=== PATIENT | male | born 2000 | race Caucasian/White ===

== ENCOUNTER 2023-03-17 10:15 | Outpatient (OUT) | payer OTHER, SELFPAY ==
[2023-03-17 11:02] LABS: Basophils Percent Auto 0.7 % (0.2-2.0); Eosinophils Absolute Auto 0.3 10^3/uL (0.0-0.7); Eosinophils Percent Auto 7.7 % (0.9-7.0); Hematocrit 41.8 % (42.0-54.0); Hemoglobin 14.5 g/dL (14.0-18.0); Immature Granulocytes Abs Auto 0.01 10^3/uL (0.00-0.03); Immature Granulocytes Pct Auto 0.2 % (0.0-0.5); Lymphocytes Absolute Auto 1.3 10^3/uL (1.2-3.8); Lymphocytes Percent Auto 30.3 % (20.5-60.0); Mean Corpuscular HGB Conc 34.7 g/dL (29.9-35.2); Mean Corpuscular Hemoglobin 31.8 pg (25.9-34.0); Mean Corpuscular Volume 91.7 fL (80.0-94.0); Mean Platelet Volume 10.6 fL (9.5-13.5); Monocytes Absolute Auto 0.4 10^3/uL (0.3-0.8); Monocytes Percent Auto 8.7 % (1.7-12.0); Neutrophils Absolute Auto 2.2 10^3/uL (1.4-6.5); Neutrophils Percent Auto 52.4 % (43.0-75.0); Platelet Count 222 10^3/uL (150-450); Red Blood Count 4.56 10^6/uL (4.70-6.10); Red Cell Distribution Width 11.6 % (11.0-15.0); White Blood Count 4.2 10^3/uL (4.0-11.0)
--- NOTE | 2023-03-17 11:03 | XR_ITS ---
The [address] [address] Patient Name: SOHAIL OWUSU MRN: [id number] date: 2000 Sex: M Assigned Patient Location: LAB Current Patient Location: LAB Accession/Order Number: [id number] Exam Date: 03/17/2023 10:55 Report Date: 03/17/2023 11:38 At the request of: BHAKTI JOYCE Procedure: XR lumbar spine 2-3V EXAM: XR lumbar spine 2-3V HISTORY: Low Back Derangement Syndrome M53.86 COMPARISON: None. TECHNIQUE: 3 views FINDINGS: Satisfactory alignment. Apparent cortical irregularity of the superior endplate of L2 vertebral body. Remainder of the vertebral body heights maintained. Maintained disc spaces. Nonobstructive bowel gas pattern. XR/XR lumbar spine 2-3V IMPRESSION: Apparent cortical irregularity of the superior endplate of L2 vertebral body may be secondary to projection versus nondisplaced fracture. Electronically authenticated by: SHITAL WONG Date: 03/17/2023 11:38
[2023-03-17 12:05] LABS: Estimated Average Glucose 94 mg/dL; Glycohemoglobin A1C 4.9 % (4.5-6.2)
[2023-03-17 12:38] LABS: Alanine Aminotransferase 30 U/L (16-63); Albumin Globulin Ratio 1.1; Albumin Level 4.2 g/dL (3.4-5.0); Alkaline Phosphatase 92 U/L (46-116); Anion Gap 12.3; Aspartate Amino Transferase 19 U/L (15-37); Bilirubin Total 0.6 mg/dL (0.2-1.0); Calcium 9.1 mg/dL (8.5-10.1); Carbon Dioxide 29.6 mmol/L (21.0-32.0); Chloride 103 mmol/L (98-107); Chol HDL Ratio 2.7; Cholesterol 167 mg/dL (<=200); Estimated GFR (African America >60 (>=60); Estimated GFR (Non-African Ame >60 (>=60); Free Thyroxine Index 2.34 (1.30-4.50); Globulin 3.7 g/dL; Glucose 85 mg/dL (74-106); HDL Cholesterol 61 mg/dL (40-60); Potassium 3.9 mmol/L (3.5-5.1); Sodium 141 mmol/L (136-145); Total Protein 7.9 g/dL (6.4-8.2); Triglycerides 41 mg/dL (<=150); VLDL CHOLESTEROL 8.2 mg/dL
== END 2023-03-17 10:16 | disposition home or self-care (01) ==
LOC: LAB 10:22
PROVIDERS: PCP Family Medicine; Visit Provider Family Medicine
DX: Z00.00 Encounter for general adult medical examination without abnormal findings (principal); E78.5 Hyperlipidemia, unspecified; R73.09 Other abnormal glucose; M53.86 Other specified dorsopathies, lumbar region
CPT/HCPCS: 36415; 72100; 80053; 80061; 83036; 84436; 84443; 84479; 85025

== ENCOUNTER 2023-04-04 09:38 | Outpatient (OUT) | payer OTHER, SELFPAY ==
--- NOTE | 2023-04-04 09:42 | XR_ITS ---
The [place] [id number] Patient Name: SOHAIL OWUSU MRN: [id number] date: 2000 Sex: M Assigned Patient Location: [facility] Current Patient Location: [facility] Accession/Order Number: [id number] Exam Date: 04/04/2023 09:50 Report Date: 04/04/2023 15:32 At the request of: ANSELMO FULLER Procedure: XR hand RT min 3V STUDY: XR hand RT min 3V, [id number] HISTORY: Mass Of Right Hand R22.31 COMPARISON: None FINDINGS/IMPRESSION: No acute fracture, dislocation, or suspicious osseous lesion. No calcified soft tissue mass. BB marker projecting over the palmar aspect of the second/third carpometacarpal joint. No radiopaque correlate for palpable lump demonstrated. Electronically authenticated by: SVEN SRINIVASAN Date: 04/04/2023 15:32
== END 2023-04-04 09:39 | disposition home or self-care (01) ==
LOC: RAD 09:38
PROVIDERS: PCP Family Medicine; Visit Provider Orthopaedic Surgery
DX: R22.31 Localized swelling, mass and lump, right upper limb (principal)
CPT/HCPCS: 73130

== ENCOUNTER 2023-04-15 07:32 | Outpatient (OUT) | payer OTHER, BC, SELFPAY ==
--- NOTE | 2023-04-15 07:48 | MR_ITS ---
The [address] [address] Patient Name: SOHAIL OWUSU MRN: [id number] date: 2000 Sex: M Assigned Patient Location: [facility] Current Patient Location: [facility] Accession/Order Number: [id number] Exam Date: 04/15/2023 08:30 Report Date: 04/15/2023 17:59 At the request of: ANSELMO FULLER Procedure: MR hand RT wo/w con EXAM: MR hand RT wo/w con HISTORY: Right hand pain COMPARISON: Hand x-rays 04/04/2023 TECHNIQUE: Multiplanar, multi sequential MRI sequences were performed with and without the administration of contrast. FINDINGS: 2 large skin markers have been placed along the palmar aspect of the hand which results in inhomogeneous fat saturation on the fluid sensitive fat saturation consists and artifact through the [id number]. Between the skin markers is a 16.5 x 12 x 6.77 mm loculated foci. This appears to exhibit heterogeneous signal on fluid sensitive sequencing, low signal on T1 weighting and heterogeneous postcontrast enhancement. No visualized soft tissue edema or hematoma. No fracture, dislocation, subluxation or osseous lesion. No joint effusion, joint erosion or synovitis. The joint capsules and collateral ligaments are unremarkable. No visualized tendon thickening, tear, edema or tenosynovial collections. No abnormal bursal fluid collections. The visualized muscles exhibit no discrete edema, hematoma, mass or cyst. MR/MR hand RT wo/w con IMPRESSION: 16.5 x 12 x 6.7 mm loculated foci within the proximal aspect of the hand adjacent to the base of the thenar eminence. Unfortunately, the skin markers result in artifact and inhomogeneous fat saturation on the fluid sensitive sequences. It is recommended that the patient return for repeat imaging without the placement of skin markers. An addendum will be made at that time. Electronically authenticated by: JOSE MCDERMOTT Date: 04/15/2023 17:59
--- NOTE | 2023-04-15 07:55 | XR_ITS ---
The [address] [address] Patient Name: SOHAIL OWUSU MRN: [id number] date: 2000 Sex: M Assigned Patient Location: RAD Current Patient Location: RAD Accession/Order Number: [id number] Exam Date: 04/15/2023 07:45 Report Date: 04/15/2023 09:04 At the request of: ANSELMO FULLER Procedure: XR foreign body eye EXAMINATION: XR foreign body eye HISTORY: Foreign Body Eye COMPARISON: No relevant comparison available. FINDINGS: ORBITS: Negative for a metallic foreign body. OTHER: Negative. XR/XR foreign body eye IMPRESSION: 1. No metallic foreign body within the orbits. Electronically authenticated by: ANSELMO OWUSU Date: 04/15/2023 09:04
== END 2023-04-15 07:33 | disposition home or self-care (01) ==
LOC: RAD 07:34
PROVIDERS: PCP Family Medicine; Visit Provider Orthopaedic Surgery
DX: R22.31 Localized swelling, mass and lump, right upper limb (principal)
CPT/HCPCS: 70030; 73220; A9575

== ENCOUNTER 2023-05-06 06:39 | Outpatient (OUT) | payer OTHER, BC, SELFPAY ==
--- NOTE | 2023-05-06 | MR_ITS ---
The [address] [address] Patient Name: SOHAIL OWUSU MRN: [id number] date: 2000 Sex: M Assigned Patient Location: MRI Current Patient Location: MRI Accession/Order Number: [id number] Exam Date: 05/06/2023 06:50 Report Date: 05/06/2023 10:47 At the request of: BHAKTI JOYCE Procedure: MR lumbar spine wo con EXAMINATION: MR lumbar spine wo con HISTORY: M53.86 other specific dorsopathies ; chronic lumbar pain and bilateral lower extremity radiculopathy COMPARISON: No relevant comparison available. TECHNIQUE: A variety of imaging planes and parameters were utilized for visualization of suspected pathology. FINDINGS: For the purposes of numbering, sagittal T2 image # 8 extends from the T12 vertebral body superiorly to the S2 level inferiorly. PARASPINAL AREA: Normal with no visible mass. BONES: No fracture, pars defect, or osseous lesion. CORD/CAUDA EQUINA: Normal caliber, contour, and signal intensity. DISC LEVELS: 12-L1: No significant disc/facet abnormality, spinal stenosis, or foraminal stenosis. L1-L2: Moderate degenerative disc disease is present without central canal or neural foramen stenosis. L2-L3: No significant disc/facet abnormality, spinal stenosis, or foraminal stenosis. L3-L4: No significant disc/facet abnormality, spinal stenosis, or foraminal stenosis. L4-L5: Mild early degenerative disc disease without significant height reduction. Mild diffuse disc bulging with minimal central canal and foramen narrowing. L5-S1: No significant disc/facet abnormality, spinal stenosis, or foraminal stenosis. MR/MR lumbar spine wo con IMPRESSION: 1. No specific findings to account for patient's symptoms. 2. Mild degenerative changes L1-2 and L4-5. Electronically authenticated by: ANSELMO OWUSU Date: 05/06/2023 10:47
== END 2023-05-06 06:40 | disposition home or self-care (01) ==
LOC: MRI 06:40
PROVIDERS: PCP Family Medicine; Visit Provider Family Medicine
DX: M53.86 Other specified dorsopathies, lumbar region (principal); M51.36 Other intervertebral disc degeneration, lumbar region
CPT/HCPCS: 72148

== ENCOUNTER 2023-08-27 09:22 | Outpatient (OUT) | payer OTHER, BC, SELFPAY ==
[2023-08-28 09:11] LABS: HIV Ab/p24 Ag Screen Non Reactive (Non Reactive); Rapid Plasma Reagin, Quant Non Reactive titer (NonRea<1:1)
[2023-08-28 11:10] LABS: HBsAg Screen Negative (Negative); HCV Antibody Non Reactive (Non Reactive); Hep B Core Ab, Tot Negative (Negative)
[2023-08-29 21:08] LABS: Neisseria gonorrhoeae, NAA Negative (Negative)
== END 2023-08-27 09:23 | disposition home or self-care (01) ==
PROVIDERS: PCP Family Medicine
DX: Z11.3 Encounter for screening for infections with a predominantly sexual mode of transmission (principal)
CPT/HCPCS: 36415; 86592; 86704; 86803; 87340; 87389; 87491; 87591

== ENCOUNTER 2024-05-16 17:35 | Emergency (ER) | payer OTHER, SELFPAY ==
[2024-05-16 17:38] VITALS: BP 122/80; PULSE 90; TEMP 36.8; O2SAT 100; BMI 25.1
--- OUTSIDE RECORDS SUMMARY | 2024-05-16 17:43 | XMS_ITS | CCD ---
Author Organization [facility] Inform ion Partnership [facility] ([facility]) [facility] Care Team Providers Care Director [facility] Name Role Phone Vernon Tran Unavailable Unavailable Veronn Tran Unavailable Unavailable Ritchie Morton Primary Care Unavailable Roddy Carpenter Attending Unavailable Roddy Carpenteritting Unavailable ESTRELLITA MILLER Referring Unavailab le GENERIC PROVIDER, NO ASSIGNED PCP Primary Care Unavailable Generic Provider MD, No Assigned Pcp Primary Car e Provider Unavailable ESTRELLITA MILLER Attending Unavailab le THIRESTRELLITA ALVARADO Attending Unavailab le GENERIC PROVIDER, NO ASSIGNED PCP Primary Care Unavailable ESTRELLITA MILLER Attending Unavailab le GENERIC PROVIDER, NO ASSIGNED PCP Primary Care Unavailable KEO MCKEON Attending Unavailable GENERIC PROVIDER, NO ASSIGNED PCP Primary Care Unavailable ESTRELLITA MILLER Referring Unavailab le GENERIC PROVIDER, NO ASSIGNED PCP Primary Care Unavailable ANA LAURA MOJICA Referring Unavailable GENERIC PROVIDER, NO ASSIGNED PCP Primary Care Unavailable ANA LAURA MOJICA Referring Unavailable GENERIC PROVIDER, NO ASSIGNED PCP Primary Care Unavailable Problems Active Problems Problem Classification Problem Date Documented Date Episodic/Chronic Contraceptive and procreative management (10 sources) Encounter for other general counseling and advice on procreation; Translations: [Patient encounter status] Onset: 03-02-2024 Episodic Immunizations and screening for infectious disease (2 sources) Encounter for screening for infections with a predominantly sexual mode of transmission; Translations: [Encounter for screening for infections with a predominantly sexual mode of transmission] Onset: 03-02-2024 Episodic Other diseases of veins and lymphatics (1 source) Varicocele; Translations: [Scrotal varices] Onset: 04-18-2024 04-18-2024 Episodic Other male genital disorders (6 sources) Organic oligospermia; 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] Onset: 03-23-2024 Episodic Other male genital disorders (4 sources) Male infertility, unspecified; Translations: [Male infertility, unspecified] Onset: 03-29-2024 Episodic Other male genital disorders (2 sources) Oligozoospermia; 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 Comment on above: Performed By: #### 1 6128-1 #### JL Sahni ([id number]) [facility] ([facility]) [address] [place] [address] Cells Counted Total (Bld) [#] 30 {cells} [facility] Comment on above: Performed By: #### 1 6128-1 #### JL Sahni ([id number]) [facility] ([facility]) [address] [place] [address] 87992 Chr analysis overall interpretation Molgen Ql (Bld/Tiss) [Interp] SEE COMMENT [facility] Comment on above: Result Comment: Caryn otype 46,XY MALE Interpretation Cytogenetic analysis of 30 metaphase cells from this 03/29/2024 Blood specimen revealed a normal male karyotype (46,XY) at this level of resolution. This individual is chromosomally normal at this level of resolution. Please remember that this analysis does not eliminate the possibility of single gene defects, chromosomal mosaicism involving abnormal cell lines of low frequency, or small chromosomal structural abnormalities. Performed By: #### 1 6128-1 #### JL Sahni ([id number]) [facility] ([facility]) [address] [place] [address] 44958 CHROMOSOME ANALYSIS CELLS ANALYZED 14 cells [facility] Comment on above: Performed By: #### 1 6128-1 #### JL Sahni ([id number]) [facility] ([facility]) [address] [place] [address] 57015 CHROMOSOME ANALYSIS CELLS IMAGED 5 cells [facility] Comment on above: Performed By: #### 1 6128-1 #### JL Sahni ([id number]) [facility] ([facility]) [address] [place] [address] 22115 CHROMOSOME ANALYSIS HYPERMODAL CELL COUNT 0 cells [facility] Comment on above: Performed By: #### 1 6128-1 #### JL Sahni ([id number]) [facility] ([facility]) [address] [place] [address] 43948 CHROMOSOME ANALYSIS HYPOMODAL CELL COUNT 0 cells [facility] Comment on above: Performed By: #### 1 6128-1 #### JL Sahni ([id number]) [facility] ([facility]) [address] [place] [address] CHROMOSOME ANALYSIS MODAL CHROMOSOME NO 46 chromosomes [facility] Comment on above: Performed By: #### 1 6128-1 #### JL Sahni ([id number]) [facility] ([facility]) [address] [place] [address] 81688 CHROMOSOME ANALYSIS STAINING METHOD GTG [facility] Comment on above: Performed By: #### 1 6128-1 #### JL Sahni ([id number]) [facility] ([facility]) [address] [place] [address] 27242 ELECTRONICALLY SIGNED BY CYTOGENETICS Sandra Jones MD, PhD, [facility] Comment on above: Performed By: #### 1 6128-1 #### JL Sahni ([id number]) [facility] ([facility]) [address] [place] [address] 29331 Karyotype Nom (Bld/Tiss) 3 cells [facility] Comment on above: Performed By: #### 1 6128-1 #### JL Sahni ([id number]) [facility] ([facility]) [address] [place] [address] 07365 Estradiolon 03-29-2024 E2 [Mass/Vol] 37 pg/mL Normal [facility] Comment on above: Order Comment: REF V ALUES FOLLICULAR PHASE 20-144 MID CYCLE 64-357 LUTEAL PHASE 56-214 POSTMENOPAUSE < 32 PREPUBERTY < 20 FEMALE 10-18Y 8-110 MALE 10-18Y < 20 ADULT MALE < 40 Performed By: #### 2 243-4 #### JL Sahni ([id number]) [facility] ([facility]) [address] [place] [address] 48907 Follitropin and Lutropin granados el Qnon 03-29-2024 Follitropin Qn 6.7 IU/L Normal [facility] Comment on above: Result Comment: FSH Ref Values Follicular 2.0-12.0 IU/L Mid-Cycle 12.0-25.0 IU/L Luteal Phase 2.0-12.0 IU/L Menopause 30.0-150.0 IU/L Pre-puberty 50% Adult IU/L Adult Male 2.0-10.0 IU/L Infants 0.0-1.0 IU/L Performed By: #### 3 4549-6 #### JL Sahni ([id number]) [facility] ([facility]) [address] [place] [address] 66749 Lutropin Qn 3.6 IU/L Normal [facility] Comment on above: Result Comment: LH R eference Values Follicular Phase 1.9-12.5 IU/L Mid-Cycle 8.7-76.3 IU/L Luteal Phase 0.5-16.9 IU/L Post Menopause 5.0-55.2 IU/L Children 0- 6.0 IU/L Adult Male 18-70 years 1.5- 9.3 IU/L Adult Male >70 years 3.1-34.6 IU/L Performed By: #### 3 4549-6 #### JL Sahni ([id number]) [facility] ([facility]) [address] [place] [address] 06050 Prolactinon 03-29-2024 Prolactin [Mass/Vol] 7.7 ug/L Normal 2.0-18.0 [facility] Comment on above: Performed By: #### 2 842-3 #### JL Sahni ([id number]) [facility] ([facility]) [address] [place] [address] Testosteroneon 03-29-2024 Testosterone [Mass/Vol] 542 ng/dL Normal 240-1000 [facility] Comment on above: Order Comment: Nandr olone decanoate, 11 Beta- hydroxytestosterone, androstenedione, testosterone propionate and 54-vynh-qfjckcnxyjcd strongly cross react with this test method. Biotin interference may cause falsely elevated results. Patients taking a Biotin dose of up to 5 mg/day should refrain from taking Biotin for 24 hours before sample collection. Providers may contact their local laboratory for further information. Performed By: #### 2 986-8 #### JL Sahni ([id number]) [facility] ([facility]) [address] [place] [address] US SCROTUM WITH DOPPLERon US SCROTUM WITH DOPPLER Interpreted By: Ahsan Owens, STUDY: US SCROTUM WITH DOPPLER; 03/29/2024 8:39 am INDICATION: Signs/Symptoms:oligo spermia. 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 ACCESSION NUMBER(S): [id number] ORDERING CLINICIAN: ESTRELLITA MILLER TECHNIQUE: Multiple ultrasonographic images of scrotum and tested were obtained. FINDINGS: RIGHT HEMISCROTUM: RIGHT TESTICLE: The right testicle measures 2.5 x 2.2 cmx 4.4 cm. The right testicle demonstrates a slightly heterogenous echotexture and normal contour. Normal vascularity and Doppler waveforms are observed in the right testicle. RIGHT EPIDIDYMIS: The right epididymal head measures 1.3 cm x 1.2 cm x 1.2 cm and is within normal limits. Small varicocele. LEFT HEMISCROTUM: LEFT TESTICLE: The left testicle measures 2.5 cm x 2.3 cm x 4.4 cm. The left testicle demonstrates a slightly heterogenous echotexture and normal contour. Normal vascularity and Doppler waveforms are observed in the left testicle. LEFT EPIDIDYMIS: The left epididymal head measures 1.1 cm x 1.1 cm x 1.3 cm and is within normal limits. Small varicocele. IMPRESSION: Slightly heterogenous echotexture without visualized lesion. Small bilateral varicoceles. MACRO: None Signed by: Ahsan Owens 03/30/2024 1:18 PM Dictation workstation: [id number] [facility] Y chromosome del Nom (Bld/Ti ss)on 03-29-2024 ELECTRONICALLY SIGNED BY Sandra Jones MD, PhD, [facility] Comment on above: Performed By: #### 3 5456-3 #### MELY PADRON ([id number]) [facility] ([facility]) [address] [place] [address] 69039 Y chromosome deletionon Y chromosome del Nom (Bld/Tiss) SEE COMMENT [facility] Comment on above: Result Comment: Resu lt: Normal. No deletions were detected in the SRY gene and the Azoospermia Factor (AZF) regions of the Y chromosome. Interpretation: DNA analysis of this individual did not reveal any deletions in the SRY gene and the AZF (azoospermia factor) regions of the Y chromosome. We cannot confirm an infertility/subfertility caused by microdeletions in the AZF regions of the long arm of the Y chromosome in this patient. Methodology: A panel of nineteen microsatellite loci spanning the AZF regions of the long arm of the Y chromosome including AZFa, AZFb, AZFc, DAZ, BETTIE-Y, SMCY and the flanking loci for stevens spermatogenesis-related genes were analyzed by multiplex PCR. In addition, the SRY gene on the short arm of the Y chromosome was also included. Disclaimer: This test was developed and its performance determined by [facility] (CLIA [id number], [place] [id number]). It has not been cleared or approved by the FDA. The FDA has determined that such clearance or approval is not necessary. This test is used for clinical purposes. It should not be regarded as investigational or for research. Nucleic acid extraction and testing are performed in the [facility] (CLIA [id number], [place] [id number]).This laboratory is certified under the Clinical Laboratory Improvement Amendments of 1988 (CLIA-88) as qualified to perform high complexity clinical laboratory testing. Performed By: #### 3 5456-3 #### MELY PADRON ([id number]) [facility] ([facility]) [address] [place] [address] C. trachomatis and N. gonorr hoeae DNA LAINE+probe Nom (Unsp spec)on 03-02-2024 C. trachomatis rRNA LAINE+probe Ql (Unsp spec) Negative Normal Negative [facility] Comment on above: Order Comment: The A PTIMA Combo 2 assay is FDA-approved NAAT using target capture for the in vitro qualitative detection and differentiation of ribosomal RNA (rRNA) for Chlamydia trachomatis and Neisseria gonorrhoeae testing on clinician-collected endocervical, PreservCyt solution liquid Pap specimens, vaginal, throat, rectal, and male urethral swab specimens; patient-collected vaginal swab specimens, and female and male urine specimens from symptomatic and asymptomatic individuals. Samples from all other sites are not validated for this method. Performed By: #### 3 6903-3 #### JL Sahni ([id number]) [facility] ([facility]) [address] [place] [address] 66259 N. gonorrhoeae DNA Probe+sig amp Ql (Unsp spec) Negative Normal Negative [facility] Comment on above: Order Comment: The A PTIMA Combo 2 assay is FDA-approved NAAT using target capture for the in vitro qualitative detection and differentiation of ribosomal RNA (rRNA) for Chlamydia trachomatis and Neisseria gonorrhoeae testing on clinician-collected endocervical, PreservCyt solution liquid Pap specimens, vaginal, throat, rectal, and male urethral swab specimens; patient-collected vaginal swab specimens, and female and male urine specimens from symptomatic and asymptomatic individuals. Samples from all other sites are not validated for this method. Performed By: #### 3 6903-3 #### JL Sahni ([id number]) [facility] ([facility]) [id number] [place] [address] 91733 HIV 1+2 Ab+HIV1 p24 Agon HIV 1+2 Ab+HIV1 p24 Ag IA Ql Non-Reactive Normal Nonreactive [facility] Comment on above: Order Comment: HIV A g/Ab screen is performed using the Siemens AtellPackLink HIV Ag/Ab Combo assay which detects the presence of HIV p24 antigen as well as antibodies to HIV-1 (Group M and O) and HIV-2. No laboratory evidence of HIV infection. If acute HIV infection is suspected, consider testing for HIV RNA by PCR (viral load). Performed By: #### 5 6888-1 #### JL Sahni ([id number]) [facility] ([facility]) [address] [place] [address] Hepatitis B virus surface Ag on 03-02-2024 HBV surface Ag IA Ql Non-Reactive Normal Nonreactive [facility] Comment on above: Result Comment: Biot in interference may cause falsely decreased results. Patients taking a Biotin dose of up to 5 mg/day should refrain from taking Biotin for 24 hours before sample collection. Providers may contact their local laboratory for further information. Performed By: #### 5 196-1 #### JL Sahni ([id number]) [facility] ([facility]) [address] [place] [address] Hepatitis C virus Abon 03-02 HCV Ab Ql (S) Non-Reactive Normal Nonreactive [facility] Comment on above: Result Comment: Resu lts from patients taking biotin supplements or receiving high-dose biotin therapy should be interpreted with caution due to possible interference with this test. Providers may contact their local laboratory for further information. Performed By: #### 1 6128-1 #### JL Sahni ([id number]) [facility] ([facility]) [address] [place] [address] Treponema pallidum Ab.IgG+Ig Mon 03-02-2024 T. pallidum IgG+IgM IA Ql (S) Non-Reactive Normal Nonreactive [facility] Comment on above: Result Comment: No s ignificant level of Treponema pallidum antibody detected. Repeat testing in 2 to 4 weeks may be considered if early infection or incubating syphilis infection is suspected. Performed By: #### 4 7236-5 #### JL Sahni ([id number]) [facility] ([facility]) [address] [place] [address] 26211 Semen Analysis, Fertilityon 06-13-2023 Debris/Round Cells None/Few Normal [facility] Comment on above: Order Comment: Metho d of Collection:: Masturbation Has the patient had a vasectomy?: N Type of Specimen Container:: Sterile Container Abstinence Period:: 3 DAYS Kept at body temperature?: Y Any Collection or Transport Problems?: NO Performed By: #### S EMCOMP #### [facility] [address] [id number] [place] Immotile Sperm 72 % Normal [facility] Comment on above: Order Comment: Metho d of Collection:: Masturbation Has the patient had a vasectomy?: N Type of Specimen Container:: Sterile Container Abstinence Period:: 3 DAYS Kept at body temperature?: Y Any Collection or Transport Problems?: NO Performed By: #### S EMCOMP #### [facility] [address] [place] [address] [place] Non-Progression Sperm Motili 24 % [facility] Comment on above: Order Comment: Metho d of Collection:: Masturbation Has the patient had a vasectomy?: N Type of Specimen Container:: Sterile Container Abstinence Period:: 3 DAYS Kept at body temperature?: Y Any Collection or Transport Problems?: NO Performed By: #### S EMCOMP #### [facility] [address] [place], [place] [id number] [place] Normal Sperm Morphology 2.0 % Low >=4.0 [facility] Comment on above: Order Comment: Metho d of Collection:: Masturbation Has the patient had a vasectomy?: N Type of Specimen Container:: Sterile Container Abstinence Period:: 3 DAYS Kept at body temperature?: Y Any Collection or Transport Problems?: NO Performed By: #### S EMCOMP #### [facility] [address] [id number] [place] Rapid Progression Sperm Motili 4 % [facility] Comment on above: Order Comment: Metho d of Collection:: Masturbation Has the patient had a vasectomy?: N Type of Specimen Container:: Sterile Container Abstinence Period:: 3 DAYS Kept at body temperature?: Y Any Collection or Transport Problems?: NO Performed By: #### S EMCOMP #### [address] Semen Appearance Normal Normal Normal [facility] Comment on above: Order Comment: Metho d of Collection:: Masturbation Has the patient had a vasectomy?: N Type of Specimen Container:: Sterile Container Abstinence Period:: 3 DAYS Kept at body temperature?: Y Any Collection or Transport Problems?: NO Performed By: #### S EMCOMP #### [address] Semen Comment Normal [facility] Comment on above: Order Comment: Metho d of Collection:: Masturbation Has the patient had a vasectomy?: N Type of Specimen Container:: Sterile Container Abstinence Period:: 3 DAYS Kept at body temperature?: Y Any Collection or Transport Problems?: NO Result Comment: . PERFORMED BY: [place] [address] PATHOLOGIST [employer] PORTAL DEVELOPER RUPAL TAVARES M.D. Performed By: #### S EMCOMP #### [address] Semen Liquefaction Abnormal Critically abnormal <=60 min [facility] Comment on above: Order Comment: Metho d of Collection:: Masturbation Has the patient had a vasectomy?: N Type of Specimen Container:: Sterile Container Abstinence Period:: 3 DAYS Kept at body temperature?: Y Any Collection or Transport Problems?: NO Performed By: #### S EMCOMP #### [address] Semen pH 8.0 Normal >=7.2 [facility] Comment on above: Order Comment: Metho d of Collection:: Masturbation Has the patient had a vasectomy?: N Type of Specimen Container:: Sterile Container Abstinence Period:: 3 DAYS Kept at body temperature?: Y Any Collection or Transport Problems?: NO Performed By: #### S EMCOMP #### [address] Semen Viscosity Abnormal Critically abnormal Normal [facility] Comment on above: Order Comment: Metho d of Collection:: Masturbation Has the patient had a vasectomy?: N Type of Specimen Container:: Sterile Container Abstinence Period:: 3 DAYS Kept at body temperature?: Y Any Collection or Transport Problems?: NO Performed By: #### S EMCOMP #### [facility] [address] Semen Volume 3.0 mL Normal >=1.5 [facility] Comment on above: Order Comment: Metho d of Collection:: Masturbation Has the patient had a vasectomy?: N Type of Specimen Container:: Sterile Container Abstinence Period:: 3 DAYS Kept at body temperature?: Y Any Collection or Transport Problems?: NO Performed By: #### S EMCOMP #### [facility] [address] Sperm Concentration 5.4 Low >=15 [facility] Comment on above: Order Comment: Metho d of Collection:: Masturbation Has the patient had a vasectomy?: N Type of Specimen Container:: Sterile Container Abstinence Period:: 3 DAYS Kept at body temperature?: Y Any Collection or Transport Problems?: NO Performed By: #### S EMCOMP #### [address] Total Motility (UT+ASSOCIATE PROFESSOR OF LIBRARY MEDIA) 28.0 % Low >=40 (UT+ASSOCIATE PROFESSOR OF LIBRARY MEDIA) [facility] Comment on above: Order Comment: Metho d of Collection:: Masturbation Has the patient had a vasectomy?: N Type of Specimen Container:: Sterile Container Abstinence Period:: 3 DAYS Kept at body temperature?: Y Any Collection or Transport Problems?: NO Performed By: #### S EMCOMP #### [facility] [address] [place] [address] [place] WBC Concent, Semen <1.0 Normal <1.0 [facility] Comment on above: Order Comment: Metho d of Collection:: Masturbation Has the patient had a vasectomy?: N Type of Specimen Container:: Sterile Container Abstinence Period:: 3 DAYS Kept at body temperature?: Y Any Collection or Transport Problems?: NO Performed By: #### S EMCOMP #### [facility] [address] [place] [address] [place] Vital Signs Date Time Vital Sign Value Performing Clinician Carla dominguez 04-24-2024 08:41-0400 Body height 177.8 cm Estrellita maynard MD Work Phone: [facility] 04-24-2024 08:41-0400 Body mass index (BMI) [Ratio] 25.83 kg/m2 Estrellita Miller MD Work Phone: [facility] 04-24-2024 08:41-0400 Body temperature 97.7 [degF] Estrellita maynard MD Work Phone: [facility] 04-24-2024 08:41-0400 Body weight 81.65 kg Estrellita maynard MD Work Phone: [facility] Encounters Encounter Date Encounter Type Care Provider Facility Start: 05-15-2024 [facility] Start: 04-24-2024 End: 04-24-2024 Office outpatient visit 25 minutes Estrellita Miller MD Work Phone: [facility] Comment on above: Infertility counseli ng (Primary Dx); Oligospermia Start: 04-24-2024 End: 04-24-2024 ambulatory [facility] Start: 04-19-2024 End: 04-19-2024 ambulatory ANA LAURA [facility] Start: 04-18-2024 End: 04-18-2024 ambulatory [facility] Start: 04-10-2024 End: 04-10-2024 ambulatory [facility] Start: 03-29-2024 End: 03-29-2024 ambulatory [facility] Start: 03-23-2024 End: 03-23-2024 ambulatory [facility] Start: 03-02-2024 End: 03-02-2024 ambulatory [facility] Start: 03-02-2024 End: 03-02-2024 ambulatory KEO MCKEON [facility] Start: 06-13-2023 End: 06-13-2023 ambulatory Ritchie Morton Facility:[facility] Procedures Date Procedure Procedure Detail Performing Clinician Start: 04-24-2024 Follow-up visit Follow-up ESTRELLITA MILLER Plan of Treatment Date Care Activity Detail Author Start: 2048 Zoster Vaccines (1 of 2) Zoste r Vaccines (1 of 2) [facility] Start: 03-25-2024 COVID-19 Vaccine ( season) COVID-19 Vaccine ( season) [facility] Start: 03-25-2024 Influenza vaccination Influenza Vacc ine (#1) [facility] Start: 10-08-2020 DTaP/Tdap/Td Vaccine s (7 - Td or Tdap) DTaP/Tdap/Td Vaccines (7 - Td or Tdap) [facility] Start: 1998 Lip[address] Lipid Panel [facility] Start: 1998 Yearly Adult Physical Yearly Adult P hysical [facility] Immunizations Immunization Date Immunization Notes Care Provider Fa cility 04-29-2023 influenza virus vaccine, unspecified formulation Estrellita Miller MD Work Phone: [facility] Work Phone: 06-18-2013 hepatitis A vaccine, unspecified formulation [facility] Work Phone: 06-18-2013 human papilloma viru s vaccine, quadrivalent [facility] Work Phone: 12-13-2012 human papilloma viru s vaccine, quadrivalent [facility] Work Phone: 10-23-2012 hepatitis A vaccine, unspecified formulation [facility] Work Phone: 10-23-2012 human papilloma viru s vaccine, quadrivalent [facility] Work Phone: 10-23-2012 meningococcal polysaccharide (groups A, C, Y and W-135) diphtheria toxoid conjugate vaccine (MCV4P) [facility] Work Phone: 10-08-2010 tetanus toxoid, reduced diphtheria toxoid, and acellular pertussis vaccine, adsorbed [facility] Work Phone: Payers Date Payer Category Payer Self-pay 2022 Private Health Insurance [facility] [id number] 2022-Present [address] [place] [address] [id number] 2022 Unknown [id number] 2022 Unknown [id number] 1998 Unknown [id number]. 2.1242 1998 Unknown [id number]. 2.1243 1998 Unknown [id number] [id number]. 2.4 1998 Unknown [id number] [id number]. 2.1243 1998 Unknown [id number] [id number]. 2.1244 1998 Unknown [id number] [id number]. 2.1244 1998 Unknown [id number] [id number]. 2.1244 1998 Unknown [id number] [id number]. 2.1244 1998 Unknown [id number] [id number]. 2.1245 Unknown [id number]. 2.531 Social History Date Type Detail Facility Assertion Tobacco smoking consumption unknown (finding) [facility] Work Phone: Start: 03-02-2024 Tobacco smoking status NHIS Never smoked tobacco [facility] Work Phone: Start: 03-02-2024 Tobacco use and exposure Smokeless tobacco non-user [facility] Work Phone: Start: 04-24-2024 Alcoholic beverage intake Lifetime non-drinker (finding) [facility] Work Phone: Start: 04-24-2024 History of Social function [facility] Work Phone: Start: 04-24-[address] [facility] Work Phone: Start: 2000 Sex assigned at Not on file [facility] Work Phone: Start: 04-14-2024 End: 04-24-2024 Exposure to SARS-CoV-2 (event) Not sure [facility] Functional Status Date Assessment Result Facility NEGATED: Highlighted row Functional performance Functional status health issues are not documented Disease [facility] Work Phone: Mental Status Date Assessment Result Facility NEGATED: Highlighted row Cognitive function [Interpretation] Cognitive status health issues are not documented Disease [facility] Work Phone: History of Present illness Narrative 04-24-2024 Estrellita Miller MD - 04/24/2024 8:30 AM EDT Note Date & Type Note Facility 04-24-2024 History of Present illness Narrative Last Visit 03/23/24: scrotal US with bilateral varicoceles recommend following up in person for a physical exam to see if varicoceles are palpable and to rule out any masses HPI: 23 y.o. yo male referred to me by Keo Mckeon (note reviewed) for infertility Today's Visit #varicocele -denies any appreciable nodules -denies bothersome pain or discomfort -denies any prior scrotal surgery #Infertility -low sperm count on SA -in the process of freezing sperm for possible IVF Partner: Mima Wilson 26 y.o., born 2000 Attempting for : 24 months Previous pregnancies for either partner: Previous Semen analysis / Labs: SA with oligospermia scanned in PREVIOUS RISK FACTORS None PRIOR Assisted Reproductive Technology: None Scrotal US: 03/30/24, personally reviewed and interpreted: IMPRESSION: Slightly heterogenous echotexture without visualized lesion. Small bilateral varicoceles. Labs, personally reviewed and interpreted: Y deletion analysis: Normal SA: Component Latest Ref Rng 04/10/2024 Semen Appearance Normal Semen Viscosity Normal Semen Liquefaction Normal Debris (Semen) Yes Clumps (Semen) No Agglutination (Semen) No Volume (Semen) 1.5 mL 5.2 Concentration(Semen) 15 mill/mL 0.98 ! Total Motility (Semen) 40 % 29 ! Prog. Motility (Semen) 32 % 22 ! Non Prog. Motility (Semen) % 7 Total No of Sperm (Semen) 39 mill 5.10 ! Total No of Motile (Semen) mill 1.47 Lab Results Component Value Date TESTOSTERONE 542 03/29/2024 Lab Results Component Value Date LH 3.6 03/29/2024 Lab Results Component Value Date FSH 6.7 03/29/2024 Lab Results Component Value Date ESTRADIOL 37 03/29/2024 No results found for: PSA No components found for: CBC Lab Results Component Value Date PROLACTIN 7.7 03/29/2024 Lab Results Component Value Date FLDPS 14 (A) 04/19/2024 Lab Results Component Value Date FLDTS 10.28 (A) 04/19/2024 Lab Results Component Value Date FLDOS 1.73 04/19/2024 PMH: No past medical history on file. PSH: No past surgical history on file. Medications: No current outpatient medications on file. Allergy: No Known Allergies Exam Testicles descended bilaterally, nontender, no masses Vasa palpable bilaterally Penis circ'd, no lesions, no plaques Very faint scars on his groin Grade 2 palpable varicocele on the left side No palpable right sided varicoceles Assessment/Plan #infertility, oligospermia I counseled the patient in detail regarding infertility, specifically the male component.We reviewed different causes of male infertility as well as options to optimize male fertility, to different surgical interventions and assisted reproductive technologies. -SA with slightly low sperm count and fertility labs all normal -will likely consider IVF #Varicocele --scrotal US demonstrating bilateral varicoceles -discussed the incidence and natural history of varicocele, as well as potential effects on fertility, pain, etc. -discussed options to fix the varicocele, specifically microsurgical repair in the setting of fertility. R.b.a's discussed in detail, selene in setting of IVF. Risks of bleeding, infection, occurrence of hydrocele, damage to adjacent structures (specifically testicle and epididymis / vas) , testicular atrophy, need for further procedures, recurrence, etc. explained to patient. -varicocele handout given - patient will reach out to schedule bilateral left varicocele repair Scribe Attestation By signing my name below, IRadha , Scribe attest that this documentation has been prepared under the direction and in the presence of Estrellita Miller MD. documented in this encounter [facility] Work Phone: Evaluation note Note Date & Type Note Facility Evaluation note Diagnosis Infertility counseling- Primary Oligospermia documented in this encounter [facility] Work Phone: Summary Purpose Family History No Family History Records FoundNo Family History Records FoundNo Family History Records FoundNo Family History Records Found Advance Directives No Advanced Directives Records FoundNo Advanced Directives Records FoundNo Advanced Directives Records FoundNo Advanced Directives Records Found Additional Source Comments (unrecognized sect ion and content) No Status Records FoundNo Status Records FoundNo Status Records FoundNo Status Records Found INFORMATION SOURCE (unrecogn ized section and content) DATE CREATED AUTHOR 06/24/2023 [facility] DATE CREATED AUTHOR AUTHOR'S ORGANIZ ATION 04/02/2024 [facility] DATE CREATED AUTHOR AUTHOR'S ORGANIZ ATION 04/25/2024 [facility] DATE CREATED AUTHOR AUTHOR'S ORGANIZ ATION 05/16/2024 [facility] Reason for Visit (unrecogniz ed section and content) Reason Comments Follow-up varicocele Care Teams (unrecognized sec tion and content) [facility] Relationship Specialty Start Date End Date Generic Provider, No Assigned Pcp, [place] [address] PCP - General [employer] 03/28/24 FOR RECORDS PERTAINING TO PATIENTS WHO ARE OR HAVE BEEN ENROLLED IN A CHEMICAL DEPENDENCY/SUBSTANCEABUSE PROGRAM, SOME INFORMATION MAY BE OMITTED. This clinical summary was aggregated from multiple sources. Caution should be exercised in using it in the provision of clinical care. This summary normalizes information from multiple sources, and as a consequence, information in this document may materially change the coding, format and clinical context of patient data. In addition, data may be omitted in some cases. CLINICAL DECISIONS SHOULD BE BASED ON THE PRIMARY CLINICAL RECORDS. [facility] [employer] [facility]. provides no warranty or guarantee of the accuracy or completeness of information in this document.
--- NOTE | 2024-05-16 17:53 | ED.GENADUL1 ---
Documented by User: Juana Tejeda DO 05/16/24 17:55 HPI HPI - General Adult General Chief complaint: Abdominal Pain Stated complaint: Abdominal Pain Time Seen by Provider: 05/16/24 17:38 Source: patient Mode of arrival: walk-in Limitations: no limitations History of Present Illness HPI narrative: Patient presents to ED complaining of abdominal pain nausea vomiting. He said it started on Tuesday with pain at work. He said everything got really tight and he had trouble working. He said he took some Motrin and then was able to get back to work and move around a little bit better. Said then Tuesday he started vomiting and then later having diarrhea and he was having some diarrhea today 2 but no more vomiting. He was able to tolerate some p.o. today. He said he still gets these waves of cramps and tightening across the abdomen mostly mid abdomen and epigastric area although does have some pain in the right lower quadrant. No fever. No previous abdominal surgical history. No testicular pain no UTI symptoms. No other sick contacts at home Related Data Previous Rx's ?Medication ?Instructions ?Recorded dicyclomine 10 mg capsule 10 mg PO QID PRN abdominal pain 05/16/24 #20 caps Allergies Allergy/AdvReac Type Severity Reaction Status Date / Time No Known Drug Allergies Allergy Verified 05/16/24 17:38 Opioid HPI Opioid Management Most Recent Opioid Data: No Data to Display Review of Systems ROS Status of ROS 10 or more systems reviewed and unremarkable except as noted in history and below Exam Narrative Exam Narrative: Time Seen: [] Vital Signs: [Per nurse's notes.] General: [Alert] Skin: [Warm, dry, no rash.] Head: [Normocephalic, atraumatic.] Neck: [Supple, trachea midline.] Eye: [Pupils are equal, round and reactive to light, extraocular movements are intact, normal conjunctiva.] Ears, nose, mouth and throat: oral mucosa moist. Cardiovascular: [Regular rate and rhythm, no murmur.] Respiratory: [Lungs are clear to auscultation, respirations are non-labored, breath sounds are equal.] Chest wall: [No tenderness, no deformity.] Gastrointestinal: [Soft, tender in periumbilical area and epigastric and mildly in the right lower quadrant, non distended, normal bowel sounds.] MSK: 5 out of 5 muscle strength x 4 extremities no calf pain or edema Lymphatics: [No lymphadenopathy.] Psychiatric: [Cooperative, appropriate mood & affect.] Neurological: [Alert and oriented to person, place, time, and situation, no focal neurological deficit observed.] Constitutional Vital Signs, click to edit/add: Last Vital Signs Temp 98.2 F 05/16/24 17:38 Pulse 81 05/16/24 19:25 Resp 18 05/16/24 19:25 BP 127/61 05/16/24 19:25 Pulse Ox 100 05/16/24 19:25 O2 Del Method Room Air 05/16/24 17:38 Course Vital Signs Vital signs: Vital Signs Temperature 98.2 F 05/16/24 17:38 Pulse Rate 90 05/16/24 17:38 Respiratory Rate 16 05/16/24 17:38 Blood Pressure 122/80 05/16/24 17:38 Pulse Oximetry 100 05/16/24 17:38 Oxygen Delivery Method Room Air 05/16/24 17:38 Temperature 98.2 F 05/16/24 17:38 Pulse Rate 81 05/16/24 19:25 Respiratory Rate 18 05/16/24 19:25 Blood Pressure 127/61 05/16/24 19:25 Pulse Oximetry 100 05/16/24 19:25 Oxygen Delivery Method Room Air 05/16/24 17:38 Medical Decision Making Lab Data Labs: Lab Results 05/16/24 05/16/24 Range/Units 17:50 17:58 WBC 6.6 (4.0-11.0) 10^3/uL RBC 4.45 L (4.70-6.10) 10^6/uL Hgb 14.1 (14.0-18.0) g/dL Hct 40.7 L (42.0-54.0) % MCV 91.5 (80.0-94.0) fL MCH 31.7 (25.9-34.0) pg MCHC 34.6 (29.9-35.2) g/dL RDW 11.0 (11.0-15.0) % Plt Count 201 (150-450) 10^3/uL MPV 10.6 (9.5-13.5) fL Neut % (Auto) 65.8 (43.0-75.0) % Lymph % (Auto) 16.6 L (20.5-60.0) % Weston % (Auto) 14.6 H (1.7-12.0) % Eos % (Auto) 2.6 (0.9-7.0) % Baso % (Auto) 0.2 (0.2-2.0) % Neut # (Auto) 4.4 (1.4-6.5) 10^3/uL Lymph # (Auto) 1.1 L (1.2-3.8) 10^3/uL Weston # (Auto) 1.0 H (0.3-0.8) 10^3/uL Eos # (Auto) 0.2 (0.0-0.7) 10^3/uL Baso # (Auto) 0.0 (0.0-0.1) 10^3/uL Abs Immat Gran (auto) 0.01 (0.00-0.03) 10^3/uL Imm/Tot Granulo (auto) 0.2 (0.0-0.5) % Sodium 141 (136-145) mmol/L Potassium 3.6 (3.5-5.1) mmol/L Chloride 102 (98-107) mmol/L Carbon Dioxide 29.0 (21.0-32.0) mmol/L Anion Gap 13.6 BUN 14.0 (7.0-18.0) mg/dL Creatinine 1.14 (0.70-1.30) mg/dL Est GFR ( Amer) >60 (>=60 mL/min/1.73m^2) Est GFR (Non-Af Amer) >60 (>=60 mL/min/1.73m^2) BUN/Creatinine Ratio 12.3 Glucose 92 (74-106) mg/dL Calcium 9.1 (8.5-10.1) mg/dL Total Bilirubin 0.7 (0.2-1.0) mg/dL AST 20 (15-37) U/L ALT 46 (16-63) U/L Alkaline Phosphatase 79 (46-116) U/L Total Protein 7.6 (6.4-8.2) g/dL Albumin 3.5 (3.4-5.0) g/dL Globulin 4.1 g/dL Albumin/Globulin Ratio 0.9 Urine Color Yellow (YELLOW) Urine Clarity Clear (CLEAR) Urine pH 6.0 (5.0-9.0) Ur Specific [place] 1.020 (1.005-1.025) Urine Protein Negative (NEG/TRACE) mg/dL Urine Glucose (UA) Negative (NEGATIVE) mg/dL Urine Ketones Negative (NEGATIVE) mg/dL Urine Occult Blood Trace-l (NEGATIVE) Urine Nitrite Negative (NEGATIVE) Urine Bilirubin Negative (NEGATIVE) Urine Urobilinogen 2.0 A (0.2-1.0) EU/dL Ur Leukocyte Esterase Negative (NEGATIVE) Urine RBC 0-2 (0-2) #/HPF Urine WBC None seen (NONE SEEN) #/HPF Ur Squamous Epith Cells Rare (NONE/RARE) #/LPF Urine Crystals None seen (None Seen) #/HPF Urine Bacteria Trace A (NONE SEEN) #/HPF Urine Casts None seen (NONE SEEN) #/LPF Urine Mucus Trace A (NONE SEEN) Ur Culture Indicated? No Imaging Data CT scan - abdomen: Radiologist's impression: ITS Impressions Abdomen/Pelvis CT 05/16/24 18:08 IMPRESSION: Mildly thickened small bowel loops. Correlate for enteritis. Electronically authenticated by: NANCY DUQUE Date: 05/16/2024 19:23 Discharge Plan Discharge Chief Complaint: Abdominal Pain Clinical Impression: Enteritis Patient Disposition: Home, Self-Care Time of Disposition Decision: 19:33 Condition: Good Mode of Transportation: Private Vehicle Prescriptions / Home Meds: New dicyclomine 10 mg capsule 10 mg PO QID PRN (Reason: abdominal pain) Qty: 20 0RF Print Language: Macanese Instructions: Enteritis (ED) Referrals: Ritchie Morton MD [Primary Care Provider] - 1 week Documented by User: Angelito Lucero MD 05/16/24 19:36 HPI HPI - General Adult General Chief complaint: Abdominal Pain Stated complaint: Abdominal Pain Time Seen by Provider: 05/16/24 17:38 Related Data Previous Rx's ?Medication ?Instructions ?Recorded dicyclomine 10 mg capsule 10 mg PO QID PRN abdominal pain 05/16/24 #20 caps Allergies Allergy/AdvReac Type Severity Reaction Status Date / Time No Known Drug Allergies Allergy Verified 05/16/24 17:38 Opioid HPI Opioid Management Most Recent Opioid Data: No Data to Display Exam Constitutional Vital Signs, click to edit/add: Last Vital Signs Temp 98.2 F 05/16/24 17:38 Pulse 81 05/16/24 19:25 Resp 18 05/16/24 19:25 BP 127/61 05/16/24 19:25 Pulse Ox 100 05/16/24 19:25 O2 Del Method Room Air 05/16/24 17:38 Course Vital Signs Vital signs: Vital Signs Temperature 98.2 F 05/16/24 17:38 Pulse Rate 90 05/16/24 17:38 Respiratory Rate 16 05/16/24 17:38 Blood Pressure 122/80 05/16/24 17:38 Pulse Oximetry 100 05/16/24 17:38 Oxygen Delivery Method Room Air 05/16/24 17:38 Temperature 98.2 F 05/16/24 17:38 Pulse Rate 81 05/16/24 19:25 Respiratory Rate 18 05/16/24 19:25 Blood Pressure 127/61 05/16/24 19:25 Pulse Oximetry 100 05/16/24 19:25 Oxygen Delivery Method Room Air 05/16/24 17:38 Medical Decision Making [facility] Narrative Medical decision making narrative: GustavoK 7:30pm the patient's CAT scan has resulted as enteritis per radiologist. He will be discharged home on Bentyl. Findings are discussed thoroughly with the patient. There is no indication for an antibiotic. Treatment diagnosis and follow-up were discussed with the patient. Differential Diagnosis Differential Diagnosis: Appendicitis, gastroenteritis, pancreatitis, constipation, diverticulitis, Lab Data Lab results reviewed: Yes I reviewed the patient's lab results Labs: Lab Results 05/16/24 05/16/24 Range/Units 17:50 17:58 WBC 6.6 (4.0-11.0) 10^3/uL RBC 4.45 L (4.70-6.10) 10^6/uL Hgb 14.1 (14.0-18.0) g/dL Hct 40.7 L (42.0-54.0) % MCV 91.5 (80.0-94.0) fL MCH 31.7 (25.9-34.0) pg MCHC 34.6 (29.9-35.2) g/dL RDW 11.0 (11.0-15.0) % Plt Count 201 (150-450) 10^3/uL MPV 10.6 (9.5-13.5) fL Neut % (Auto) 65.8 (43.0-75.0) % Lymph % (Auto) 16.6 L (20.5-60.0) % Weston % (Auto) 14.6 H (1.7-12.0) % Eos % (Auto) 2.6 (0.9-7.0) % Baso % (Auto) 0.2 (0.2-2.0) % Neut # (Auto) 4.4 (1.4-6.5) 10^3/uL Lymph # (Auto) 1.1 L (1.2-3.8) 10^3/uL Weston # (Auto) 1.0 H (0.3-0.8) 10^3/uL Eos # (Auto) 0.2 (0.0-0.7) 10^3/uL Baso # (Auto) 0.0 (0.0-0.1) 10^3/uL Abs Immat Gran (auto) 0.01 (0.00-0.03) 10^3/uL Imm/Tot Granulo (auto) 0.2 (0.0-0.5) % Sodium 141 (136-145) mmol/L Potassium 3.6 (3.5-5.1) mmol/L Chloride 102 (98-107) mmol/L Carbon Dioxide 29.0 (21.0-32.0) mmol/L Anion Gap 13.6 BUN 14.0 (7.0-18.0) mg/dL Creatinine 1.14 (0.70-1.30) mg/dL Est GFR ( Amer) >60 (>=60 mL/min/1.73m^2) Est GFR (Non-Af Amer) >60 (>=60 mL/min/1.73m^2) BUN/Creatinine Ratio 12.3 Glucose 92 (74-106) mg/dL Calcium 9.1 (8.5-10.1) mg/dL Total Bilirubin 0.7 (0.2-1.0) mg/dL AST 20 (15-37) U/L ALT 46 (16-63) U/L Alkaline Phosphatase 79 (46-116) U/L Total Protein 7.6 (6.4-8.2) g/dL Albumin 3.5 (3.4-5.0) g/dL Globulin 4.1 g/dL Albumin/Globulin Ratio 0.9 Urine Color Yellow (YELLOW) Urine Clarity Clear (CLEAR) Urine pH 6.0 (5.0-9.0) Ur Specific [place] 1.020 (1.005-1.025) Urine Protein Negative (NEG/TRACE) mg/dL Urine Glucose (UA) Negative (NEGATIVE) mg/dL Urine Ketones Negative (NEGATIVE) mg/dL Urine Occult Blood Trace-l (NEGATIVE) Urine Nitrite Negative (NEGATIVE) Urine Bilirubin Negative (NEGATIVE) Urine Urobilinogen 2.0 A (0.2-1.0) EU/dL Ur Leukocyte Esterase Negative (NEGATIVE) Urine RBC 0-2 (0-2) #/HPF Urine WBC None seen (NONE SEEN) #/HPF Ur Squamous Epith Cells Rare (NONE/RARE) #/LPF Urine Crystals None seen (None Seen) #/HPF Urine Bacteria Trace A (NONE SEEN) #/HPF Urine Casts None seen (NONE SEEN) #/LPF Urine Mucus Trace A (NONE SEEN) Ur Culture Indicated? No Imaging Data CT scan - abdomen: Radiologist's impression: ITS Impressions Abdomen/Pelvis CT 05/16/24 18:08
--- NOTE | 2024-05-16 18:08 | CT_ITS ---
[facility] [place] [id number] Patient Name: SOHAIL OWUSU MRN: [id number] date: 2000 Sex: M Assigned Patient Location: ER Current Patient Location: ED.MAIN Accession/Order Number: [id number] Exam Date: 05/16/2024 18:04 Report Date: 05/16/2024 19:23 At the request of: DONY KAPADIA Procedure: CT abdomen pelvis wo con CT ABDOMEN/PELVIS WITHOUT IV CONTRAST. INDICATION: abd pain COMPARISON: There are no other studies available for comparison. TECHNIQUE: Contiguous axial images were obtained from the lung bases to the pelvic floor without intravenous or oral contrast. Coronal and sagittal reformations are provided. FINDINGS: LOWER LUNGS: Clear. LIVER/BILIARY TREE: No discrete lesion. No intrahepatic ductal dilatation. GALLBLADDER: No significant gallbladder wall thickening. No radiopaque stone. CBD: Normal CBD. SPLEEN: Normal in size. PANCREAS: No appreciable peripancreatic fluid. No pancreatic ductal dilatation. No discrete lesion. ADRENALS: Normal. KIDNEYS: No hydronephrosis. No radiopaque calculus. STOMACH AND BOWEL: Stomach is unremarkable. No dilated bowel loops. There are mildly thickened small bowel loops. APPENDIX: Normal appendix. PERITONEAL CAVITY: No fluid. No fat stranding. ABDOMINAL WALL: No subcutaneous stranding. No subcutaneous fluid collection. LYMPH NODES: No mesenteric or retroperitoneal lymphadenopathy by CT criteria. ABDOMINAL AORTA: No aneurysm. PELVIS: No acute abnormality. MUSCULOSKELETAL: No acute osseous abnormality. CT/CT abdomen pelvis wo con IMPRESSION: Mildly thickened small bowel loops. Correlate for enteritis. Electronically authenticated by: NANCY DUUQE Date: 05/16/2024 19:23
[2024-05-16 18:10] LABS: Basophils Percent Auto 0.2 % (0.2-2.0); Eosinophils Absolute Auto 0.2 10^3/uL (0.0-0.7); Eosinophils Percent Auto 2.6 % (0.9-7.0); Hematocrit 40.7 % (42.0-54.0); Hemoglobin 14.1 g/dL (14.0-18.0); Immature Granulocytes Abs Auto 0.01 10^3/uL (0.00-0.03); Immature Granulocytes Pct Auto 0.2 % (0.0-0.5); Lymphocytes Absolute Auto 1.1 10^3/uL (1.2-3.8); Lymphocytes Percent Auto 16.6 % (20.5-60.0); Mean Corpuscular HGB Conc 34.6 g/dL (29.9-35.2); Mean Corpuscular Hemoglobin 31.7 pg (25.9-34.0); Mean Corpuscular Volume 91.5 fL (80.0-94.0); Mean Platelet Volume 10.6 fL (9.5-13.5); Monocytes Percent Auto 14.6 % (1.7-12.0); Neutrophils Absolute Auto 4.4 10^3/uL (1.4-6.5); Neutrophils Percent Auto 65.8 % (43.0-75.0); Platelet Count 201 10^3/uL (150-450); Red Blood Count 4.45 10^6/uL (4.70-6.10); White Blood Count 6.6 10^3/uL (4.0-11.0)
[2024-05-16 18:19] LABS: Bilirubin Urine NEGATIVE (NEGATIVE); Blood Urine TRACE-L (NEGATIVE); Clarity Urine CLEAR (CLEAR); Color Urine YELLOW (YELLOW); Glucose Urine UA NEGATIVE (NEGATIVE); Ketones Urine NEGATIVE (NEGATIVE); Leukocyte Esterase Urine NEGATIVE (NEGATIVE); Nitrite Urine NEGATIVE (NEGATIVE); Protein Urine NEGATIVE (NEG/TRACE)
[2024-05-16 18:20] LABS: Bacteria Urine TRACE #/HPF (NONE SEEN); Cast Seen? NONE SEEN #/LPF (NONE SEEN); Crystals Seen? None Seen #/HPF (None Seen); Mucus Urine TRACE (NONE SEEN); RBC Urine 0-2 #/HPF (0-2); Squamous Epithelial Cell Urine RARE #/LPF (NONE/RARE); Urine Culture Indicated NO; Urine Microscopic Indicated YES; WBC Urine NONE SEEN #/HPF (NONE SEEN)
[2024-05-16 18:24] LABS: Alanine Aminotransferase 46 U/L (16-63); Albumin Globulin Ratio 0.9; Albumin Level 3.5 g/dL (3.4-5.0); Alkaline Phosphatase 79 U/L (46-116); Anion Gap 13.6; Aspartate Amino Transferase 20 U/L (15-37); BUN Creatinine Ratio 12.3; Bilirubin Total 0.7 mg/dL (0.2-1.0); Calcium 9.1 mg/dL (8.5-10.1); Chloride 102 mmol/L (98-107); Estimated GFR (African America >60 (>=60 mL/min/1.73m^2); Estimated GFR (Non-African Ame >60 (>=60 mL/min/1.73m^2); Globulin 4.1 g/dL; Glucose 92 mg/dL (74-106); Potassium 3.6 mmol/L (3.5-5.1); Sodium 141 mmol/L (136-145); Total Protein 7.6 g/dL (6.4-8.2)
[2024-05-16 19:25] VITALS: BP 127/61; PULSE 81; O2SAT 100
== END 2024-05-16 19:44 | disposition home or self-care (01) ==
PROVIDERS: Emergency Medicine; Emergency Provider Emergency Medicine; PCP Family Medicine
DX: K52.9 Noninfective gastroenteritis and colitis, unspecified (principal)
CPT/HCPCS: 36415; 74176; 80053; 81001; 85025; 99285